=== PATIENT | male | born 1995 | race Hispanic/Latino ===

== ENCOUNTER 2024-02-02 17:54 | Emergency (ER) | payer SELFPAY ==
[2024-02-02 18:06] VITALS: BP 136/89; PULSE 82; RESP 16; TEMP 37; O2SAT 100
--- NOTE | 2024-02-02 18:29 | ED.NEUROSD ---
HPI - Neuro Symptoms/Deficit General Chief Complaint: Neuro Symptoms/Deficit Stated Complaint: blood pressure high Time Seen by Provider: 02/02/24 18:10 Source: patient Mode of arrival: ambulatory Limitations: no limitations History of Present Illness HPI Narrative: Gume is a 28-year-old male patient presenting to the clinic today with concern for high blood pressure. He reports that this morning around 7 or 8 am he was having warmness feeling to him the left side of his face with a little scratchiness sensation to his eye. [place] as though maybe his blood pressure was high as he did have a headache at that time. His symptoms have resolved however he contacted his physician at home and they wanted him to come in and be evaluated for high blood pressure. He denies having a history of high blood pressure and does not currently take any medications on regular basis. 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 All symptoms have resolved prior to coming into the clinic today by his family still wanting him to be checked out. Review of Systems Review of Systems: Pertinent positives per HPI. Patient denies any fever, chills, rash, visual changes, dizziness, cough, runny nose, sore throat, shortness of breath, chest pain, palpitations, nausea, vomiting, diarrhea, constipation, abdominal pain, or any urinary issues. PMFSH Comments At the time of my signature, I reviewed and agree with the nursing past medical, surgical, social, and family history. There is no relevant family history pertinent to the patient complaint. Exam Narrative: General: Well-developed, well nourished, in no apparent distress Head: Normocephalic, atraumatic Eyes: Pupils equally round and reactive to light bilaterally, EOM intact, sclera and conjunctive clear, no discharge, lids normal Ears: TMs intact and clear, ear canals clear, no drainage, grossly hearing normal. Nose: Nares patent, no discharge, no inflammation, no sinus tenderness. Mouth: Oropharynx without lesions or masses, good dentition, MMM. Tongue midline, even rise and fall of uvula Neck: Supple, trachea midline, no enlargement of anterior or posterior cervical nodes, no thyroid masses or goiter palpable. Cardio: Regular rate and rhythm, s1 and s2 normal, no murmur appreciated. Resp: Clear to auscultation bilaterally anteriorly and posteriorly, no rhonchi, rales, wheezing or rubs Musculoskeletal: No deformity, non-tender to palpation, grossly normal range of motion, muscle strength strong and equal, peripheral pulse strong, no edema, no cyanosis, normal gait and station Neuro: Alert and oriented x4 with normal speech, no focal deficits, cranial nerves I through XII intact, muscle strength 5 out of 5, sensation intact bilaterally, negative Romberg test Course Course Emergency Course: Portions of this record may have been created with voice recognition software. Level of Care: Express Care Visit Vital Signs Vital signs: Vital Signs Temperature 37.0 C 02/02/24 18:06 Pulse Rate 82 02/02/24 18:06 Respiratory Rate 16 02/02/24 18:06 Blood Pressure 136/89 02/02/24 18:06 Pulse Oximetry 100 02/02/24 18:06 Oxygen Delivery Room Air 02/02/24 18:06 Temperature 37.0 C 02/02/24 18:06 Pulse Rate 82 02/02/24 18:06 Respiratory Rate 16 02/02/24 18:06 Blood Pressure 136/89 02/02/24 18:06 Pulse Oximetry 100 02/02/24 18:06 Oxygen Delivery Room Air 02/02/24 18:06 Vital signs reviewed MDM - Neuro Symptoms/Deficit MDM Narrative Medical decision making narrative: At the time of visit patient is resting comfortably on the exam table. Patient appears to be nontoxic. Plan: Patient has a blood pressure 136/89 the clinic. Blood pressure is elevated but discussed that is not at stroke level. Patient to be able to follow-up with his primary care doctor regarding elevated blood
== END 2024-02-02 18:30 | disposition home or self-care (01) ==
PROVIDERS: Emergency Provider Nurse Practitioner Family
DX: R03.0 Elevated blood-pressure reading, without diagnosis of hypertension (principal)
CPT/HCPCS: 99213; G0463